=== PATIENT | female | born 1995 | race Caucasian/White ===

== ENCOUNTER 2019-01-08 00:15 | Emergency (ER) | payer SELFPAY ==
[2019-01-08 00:17] VITALS: BP 119/66
--- NOTE | 2019-01-08 00:20 | ER Report ---
History and Physical Time Seen By MD: 00:16 HPI/ROS CHIEF COMPLAINT: Alf clearance HISTORY OF PRESENT ILLNESS: 24-year-old female brought in by police for prison clearance. Patient appears alcohol intoxicated. Patient's tearful and upset, wanting to go home requesting to be able to call her mother. She is in the custody of officers. She voices no complaints. She has no apparent injuries. She denies any complaints or significant past medical history REVIEW OF SYSTEMS: Respiratory: No cough, no dyspnea. Cardiovascular: No chest pain, no palpitations. Gastrointestinal: No vomiting, no abdominal pain. Musculoskeletal: No back pain. Allergies: Uncoded Allergies: UNKNOWN (Allergy, Unknown, 01/08/19) Reviewed Nurses Notes: Yes Old Medical Records Reviewed: Yes Constitutional Vital Sign - Last 24 Hours 01/08/19 00:17 Temp 99.2 Pulse 130 Resp 28 B/P (MAP) 119/66 Pulse Ox 93 Physical Exam General Appearance: The patient is alert, has no immediate need for airway protection and no current signs of toxicity. Palpation of the head and neck reveals no tenderness or trauma HEENT: Pupils equal and round no injection. TMs normal, oropharynx without trauma Respiratory: Chest is non tender, lungs are clear to auscultation. Cardiac: regular rate and rhythm Gastrointestinal: Abdomen is soft and non tender, no masses, bowel sounds normal. Musculoskeletal: Neck: Neck is supple and non tender. Extremities have full range of motion and are non tender. No evidence of trauma Skin: No rashes or lesions. DIFFERENTIAL DIAGNOSIS: After history and physical exam differential diagnosis was considered for [ ] Medical Decision Making ED Course/Re-evaluation ED Course Patient was admitted to an examination room. H&P was done. The differential diagnoses was considered. On clinical examination. Patient has no findings on clinical examination. She is quite upset. Her vital signs are stable. Patient voices no complaints. She is medical cleared for prison admission. Decision to Disposition Date: Jan 08, 2019 Decision to Disposition Time: 00:19 Depart Departure Latest Vital Signs Vital Signs Date Time Temp Pulse Resp B/P (MAP) Pulse Ox O2 Delivery O2 Flow Rate FiO2 01/08/19 00:17 99.2 130 28 119/66 93 Impression: Primary Impression: Medical clearance for incarceration Additional Impressions: Alcohol intoxication Emotional upset Condition: Improved Disposition: [facility] TO ALF/CORRECTIONAL F Patient Instructions: Alcohol Intoxication (ED) Additional Instructions: Medically cleared for admission to prison Problem Qualifiers Additional Impressions: Alcohol intoxication Complication of substance-induced condition: uncomplicated Qualified Codes: F10.920 - Alcohol use, unspecified with intoxication, uncomplicated VINNIE TOMAS DO Jan 08, 2019 00:20
== END 2019-01-08 00:25 ==
LOC: ER 00:18
DX: F10.920 Alcohol use, unspecified with intoxication, uncomplicated (principal)
CPT/HCPCS: 99281